=== PATIENT | male | born 1985 | race Caucasian/White ===

== ENCOUNTER 2018-04-22 20:00 | Emergency (ER) | payer OTHER ==
[~2018-04-22] VITALS: Ht 175.3 cm; Wt 95.3 kg
[2018-04-22 20:05] VITALS: Ht 175.3 cm; Wt 95.3 kg
[2018-04-22 23:22] VITALS: BP 131/78
[2018-04-23] MEDS ORDERED: ATORVASTATIN CA40 M1 PO (13:02)
== END 2018-04-22 23:22 | disposition home or self-care (01) ==
LOC: ED 20:00
DX: S13.4XXA Sprain of ligaments of cervical spine, initial encounter (principal); V49.9XXA Car occupant (driver) (passenger) injured in unspecified traffic accident, initial encounter; Z90.89 Acquired absence of other organs; W22.10XA Striking against or struck by unspecified automobile airbag, initial encounter; Y93.89 Activity, other specified; Y92.413 State road as the place of occurrence of the external cause; Y99.8 Other external cause status; R10.32 Left lower quadrant pain; R10.31 Right lower quadrant pain
CPT/HCPCS: J1885; J2270; Q9967

== ENCOUNTER 2018-04-23 01:32 | Inpatient (IN) | payer OTHER ==
[~2018-04-23] VITALS: Ht 175.3 cm; Wt 96.2 kg
[2018-04-23 04:09] LABS: BASOPHIL % 0.9 % (0-2); PLATELET COUNT 387 x10^3mcL (130-400); RED CELL DISTRIBUTION WIDTH 13.5 % (11.5-14.5)
[2018-04-23 04:15] LABS: CALCIUM 8.4 mg/dL (8.5-10.1); CARBON DIOXIDE 27.7 mmol/L (21-32); CHLORIDE SERUM 103 mmol/L (98-107); CREATININE SERUM 1.2 mg/dL (0.7-1.3); GFR1 > 60 mL/min; GLUCOSE SERUM 107 mg/dL (74-106); POTASSIUM SERUM 3.6 mmol/L (3.5-5.1); SODIUM SERUM 140 mmol/L (136-145)
[2018-04-23 04:20] LABS: ALBUMIN 3.7 g/dL (3.4-5.0); ALKALINE PHOSPHATASE 83 U/L (46-116); ALT/SGPT 37 U/L (16-63); AST/SGOT 19 U/L (15-37); BILIRUBIN TOTAL 0.34 mg/dL (0.20-1.00); TOTAL PROTEIN, SERUM 7.5 g/dL (6.4-8.2)
[2018-04-23 05:59] VITALS: BP 119/79
[2018-04-23 06:36] LABS: CHOLESTEROL 191 mg/dL (<200); MAGNESIUM 2.1 mg/dL (1.8-2.4)
[2018-04-23 06:59] LABS: CHOLESTEROL/HDL RATIO 5.6; HDL CHOLESTEROL 34 mg/dL (40-60); TRIGLYCERIDES 410 mg/dL (<150)
[2018-04-23 09:05] VITALS: BP 123/81
[2018-04-23 12:00] VITALS: BP 115/77
[2018-04-23] MEDS ORDERED: ATORVASTATIN CA40 M1 PO (13:02)
[2018-04-23 13:39] VITALS: BP 115/77
[2018-04-23 14:37] VITALS: Ht 175.3 cm; Wt 96.2 kg
[2018-04-23 16:27] VITALS: BP 117/70
== END 2018-04-23 17:18 | disposition home or self-care (01) | DRG 812 ==
LOC: ED 01:32 → DU 05:15
PROVIDERS: Emergency Medicine; Family Medicine
DX: T43.621A Poisoning by amphetamines, accidental (unintentional), initial encounter (principal); G92 Toxic encephalopathy; G90.8 Other disorders of autonomic nervous system; V89.2XXA Person injured in unspecified motor-vehicle accident, traffic, initial encounter; Y93.89 Activity, other specified; Y92.89 Other specified places as the place of occurrence of the external cause; Y99.8 Other external cause status; I10 Essential (primary) hypertension; Z90.49 Acquired absence of other specified parts of digestive tract; E78.1 Pure hyperglyceridemia
CPT/HCPCS: 82962; G0480; J7030; J8597; Q0092